=== PATIENT | female | born 1980 | race Caucasian/White ===

== ENCOUNTER 2019-12-18 08:08 | Emergency (ER) | payer MEDICARE, MEDICAID, SELFPAY ==
--- NOTE | 2019-12-18 08:13 | ED.GENADULT ---
HPI - General Adult General Stated complaint: Rash Time Seen by Provider: 12/18/19 08:31 Source: patient and RN notes reviewed Mode of arrival: ambulatory Limitations: no limitations History of Present Illness HPI narrative: This patient started having a red itchy raised rash on the bilateral lower back 2 days ago on 12/16/2019. This is known anterior thighs and on the anterior abdomen. She does not have any on the hands or on the arms. She has no in the neck or on the facial area. She has none below the knees. And on the feet. She has not changed anything that she puts on the skin for cleansing or bathing purposes. She has not been traveling. She not had any insect bites or insects appear. There is been no blisters appear. There have been no pustules. She is otherwise felt well without any ear pain, no nasal drainage, no sore throat, no fever, no cough. She has had no nausea, no vomiting, no diarrhea. She has had no hematuria, no dysuria, no pyuria. No family members have any rashes. Related Data Home Medications Medication Instructions Recorded Confirmed bupropion HCl PO 12/18/19 buspirone mg 12/18/19 etonogestrel-ethinyl estradiol vag ring VAGINAL 12/18/19 mirabegron [Myrbetriq] mg PO 12/18/19 pantoprazole PO 12/18/19 trazodone 12/18/19 Allergies Allergy/AdvReac Type Severity Reaction Status Date / Time SEASONAL ALLERGENS AdvReac Unknown RUNNY NOSE Uncoded 12/18/19 08:37 Review of Systems Review of Systems: Narrative: CONSTITUTIONAL: Denies fever, chills, or sweats. Noncontributory except as pertains to the past medical history and the history of present illness. EYES: Denies visual changes, redness, or discharge. ENT: Denies rhinorrhea, congestion, sore throat, or otalgia. CARDIOVASCULAR: Denies chest pain, palpitations, or edema. RESPIRATORY: Denies cough or dyspnea. GASTROINTESTINAL: Denies abdominal pain, nausea, vomiting, or diarrhea. GENITOURINARY: Denies dysuria or hematuria. SKIN: Denies rash or itching. MUSCULOSKELETAL: Denies back pain, joint pain, or myalgia. NEUROLOGIC: Denies headache, numbness, or weakness. PSYCHIATRIC: Denies anxiety or depression. [facility] Family History Family History (Updated 07/13/19 @ 08:34 by DOCTOR UNKNOWN) Other Family history of arthritis Family history of malignant neoplasm Family history of neuropathy Hypertension Social History Social History Smoking status: Former smoker Smoking end date: 11/09/09 Alcohol intake: current Comments At time of signature, I have reviewed and agree with nursing past medical, surgical, social, and family history.Please see nursing chart for further information. There is no relevant family history pertinent to the presenting complaint. Exam Narrative: Exam Narrative: GENERAL: Well-appearing, well-nourished, and in no acute distress. HEAD: Normocephalic, atraumatic. EYES: PERRLA and EOMI. EARS: TM's clear biilaterally and the canals are clear. NOSE: Nares clear, no rhinorrhea or epistaxis. THROAT:Mucous membranes moist.Oropharynx normal without erythema or exudates. NECK: Supple. No adenopathy of the neck, supraclavicular, axillary, or inguinal areas. RESPIRATORY: No respiratory distress. Airway patent. Respirations non-labored. Clear to auscultation. HEART: Regular rate and rhythm. No murmur heard. Normal peripheral pulses. ABDOMEN: Soft, nontender, nondistended, normal active bowel sounds.No masses. No rebound or guarding, No organomegaly. No CVA pain. No pain McBurney's point. Patient is a negative Wills sign negative Rovsing sign. No pulsatile masses or audible bruits. EXTREMITIES: No clubbing/cyanosis/ edema. Normal strength & range of motion. SKIN: Warm, dry.Normal color. Patient is well-nourished well-hydrated has moist mucous membranes and no tenting of the skin. The skin exam shows that she has a red raised rash without any herpetic lesions present there also no abscesses and no evidenc
[2019-12-18 08:24] VITALS: BP 95/51; PULSE 81; RESP 16; TEMP 36.4; O2SAT 100
== END 2019-12-18 08:43 | disposition home or self-care (01) ==
LOC: EXPCOLL 08:16
PROVIDERS: Emergency Provider Family Medicine; PCP Emergency Medicine
DX: L23.9 Allergic contact dermatitis, unspecified cause (principal); Z87.891 Personal history of nicotine dependence
CPT/HCPCS: 99213; G0463

== ENCOUNTER 2020-01-11 08:48 | Emergency (ER) | payer MEDICARE, MEDICAID, SELFPAY ==
[2020-01-11 09:01] VITALS: BP 97/51; PULSE 76; RESP 16; TEMP 36.9; O2SAT 99
--- NOTE | 2020-01-11 09:40 | ED.GENADULT ---
HPI - General Adult General Chief complaint: Upper Respiratory Infection Stated complaint: Sore Throat History of Present Illness HPI narrative: 97 this is a 39-year-old female who comes in complaining of a sore throat that started yesterday patient denies taking any allergy medicine or gargling any warm salt water. Patient denies any fever but states she had a low-grade. Patient states that she started to have like aches that started this morning denies any nausea vomiting and/or diarrhea Related Data Home Medications Medication Instructions Recorded Confirmed bupropion HCl 150 mg PO BID 01/11/20 01/11/20 buspirone 10 mg PO BID 01/11/20 01/11/20 etonogestrel-ethinyl estradiol 1 vag ring VAGINAL ONCE 01/11/20 01/11/20 [NuvaRing] gabapentin 01/11/20 methotrexate sodium 2.5 mg PO DAILY 01/11/20 01/11/20 pantoprazole [Protonix] 40 mg PO DAILY 01/11/20 01/11/20 prednisone 20 mg PO DAILY 01/11/20 01/11/20 tramadol 50 mg PO QID 01/11/20 01/11/20 trazodone 100 mg PO BID 01/11/20 01/11/20 Allergies Allergy/AdvReac Type Severity Reaction Status Date / Time SEASONAL ALLERGENS AdvReac Unknown RUNNY NOSE Uncoded 12/18/19 08:37 Review of Systems Review of Systems: Narrative: CONSTITUTIONAL: Denies fever, chills, or sweats. EYES: Denies visual changes, redness, or discharge. ENT: Positive rhinorrhea, congestion, sore throat, or otalgia. CARDIOVASCULAR:Denies chest pain, palpitations, or edema. RESPIRATORY: Denies cough or dyspnea. GASTROINTESTINAL: Denies abdominal pain, nausea, vomiting, or diarrhea. GENITOURINARY: Denies dysuria or hematuria. SKIN:[Denies rash or itching. MUSCULOSKELETAL:Denies back pain, joint pain, or myalgia. NEUROLOGIC: Denies headache, numbness, or weakness. PSYCHIATRIC:Denies anxiety or depression [facility] Family History Family History (Updated 07/13/19 @ 08:34 by DOCTOR UNKNOWN) Other Family history of arthritis Family history of malignant neoplasm Family history of neuropathy Hypertension Social History Social History Smoking status: Former smoker Smoking end date: 11/09/09 Alcohol intake: current Gender identity (if verbalized by the patient): Female Comments At time as signature, I have reviewed and agree with nursing past medical, social, surgical and family history. Please see nursing chart for further information. There is no relevant family history pertinent to the presenting complaint. Exam Narrative: Exam Narrative: GENERAL:Well-appearing, well-nourished, and in no acute distress. HEAD:Normocephalic, atraumatic. EYES: PERRLA and EOMI. ENT: Nares clear, no rhinorrhea or epistaxis. Mucous membranes moist. Pharyngeal erythema left-sided tonsil slightly enlarged not sure if erythema is due to cough drops NECK: Supple. CHEST: Clear to auscultation. No respiratory distress. HEART: Regular rate and rhythm. No murmur heard. Normal peripheral pulses. ABDOMEN: Soft, nontender, nondistended, normal active bowel sounds. EXTREMITIES: Normal range of motion. No edema. SKIN: Warm, dry, no rash. NEURO: No focal deficits. Alert and oriented x3. We can culture her neck and give antibiotics Course Vital Signs Vital signs: Vital Signs Temperature 98.4 F 01/11/20 09:01 Pulse Rate 76 01/11/20 09:01 Respiratory Rate 16 01/11/20 09:01 Blood Pressure 97/51 L 01/11/20 09:01 Pulse Oximetry 99 01/11/20 09:01 Temperature 98.4 F 01/11/20 09:01 Pulse Rate 76 01/11/20 09:01 Respiratory Rate 16 01/11/20 09:01 Blood Pressure 97/51 L 01/11/20 09:01 Pulse Oximetry 99 01/11/20 09:01 Medical Decision Making Vital Signs Vital Signs: Vital Signs Temperature 98.4 F 01/11/20 09:01 Pulse Rate 76 01/11/20 09:01 Respiratory Rate 16 01/11/20 09:01 Blood Pressure 97/51 L 01/11/20 09:01 Pulse Oximetry 99 01/11/20 09:01 Temperature 98.4 F 01/11/20 09:01 Pulse Rate 76 01/11/20 09:01 Respiratory Rate 16 01/11/20 09:01 Blood Pr
--- NOTE | 2020-01-11 09:50 | PC.NURSE ---
Pt request flu testing.
== END 2020-01-11 10:20 | disposition home or self-care (01) ==
PROVIDERS: Emergency Provider Nurse Practitioner Family; PCP Emergency Medicine
DX: J02.9 Acute pharyngitis, unspecified (principal); Z87.891 Personal history of nicotine dependence
CPT/HCPCS: 87081; 87804; 87880; 99213; G0463

== ENCOUNTER 2020-01-24 04:48 | Emergency (ER) | payer MEDICARE, MEDICAID, SELFPAY ==
[2020-01-24 05:02] VITALS: BP 105/55; PULSE 92; RESP 16; TEMP 37.1; O2SAT 99
[2020-01-24 06:11] VITALS: BP 118/82; PULSE 80; RESP 18; O2SAT 95
[2020-01-24] MEDS: PENICILLIN V POTASSIUM 250 MG TABLET 500 MG PO (06:30)
[2020-01-24] MEDS: AZITHROMYCIN 250 MG TABLET 500 MG PO (06:31)
--- NOTE | 2020-01-24 06:49 | ED.GENADULT ---
HPI - General Adult General Chief complaint: Upper Respiratory Infection Stated complaint: swollen tonsil Time Seen by Provider: 01/24/20 06:04 History of Present Illness HPI narrative: sore throat and swollen tonsils for the past 2 weeks. She tested negative for strep at the onset of her symptoms. Her symptoms have not improved since that time. Additionally she has had pain in the right ear and mild temperature elevation. Unsure about sick contacts. Related Data Home Medications Medication Instructions Recorded Confirmed bupropion HCl 150 mg PO BID 01/11/20 01/11/20 buspirone 10 mg PO BID 01/11/20 01/11/20 etonogestrel-ethinyl estradiol 1 vag ring VAGINAL ONCE 01/11/20 01/11/20 [NuvaRing] gabapentin 01/11/20 methotrexate sodium 2.5 mg PO DAILY 01/11/20 01/11/20 pantoprazole [Protonix] 40 mg PO DAILY 01/11/20 01/11/20 prednisone 20 mg PO DAILY 01/11/20 01/11/20 tramadol 50 mg PO QID 01/11/20 01/11/20 trazodone 100 mg PO BID 01/11/20 01/11/20 Allergies Allergy/AdvReac Type Severity Reaction Status Date / Time SEASONAL ALLERGENS AdvReac Unknown RUNNY NOSE Uncoded 12/18/19 08:37 Review of Systems Review of Systems: All systems reviewed & are unremarkable except as noted in HPI and below Constitutional: Constitutional: Denies fever(s) ENT: Reports sore throat Cardiovascular: Cardiovascular: Denies chest pain Gastrointestinal: Gastrointestinal: Denies abdominal pain and Denies nausea Musculoskeletal: Musculoskeletal: Denies myalgias Neurologic: Denies weakness Endocrine: Endocrine: Denies polydipsia Allergic/Immunologic: Allergic/Immunologic: Denies lip swelling and Denies tongue swelling REPLACED BY [facility] Past Medical History Medical History (Updated 01/24/20 @ 06:56 by Manoj Carter MD) Depression Family History Family History Other Family history of arthritis Family history of malignant neoplasm Family history of neuropathy Hypertension Social History Social History Smoking status: Former smoker Smoking end date: 11/09/09 Alcohol intake: current Gender identity (if verbalized by the patient): Female Exam Const: General: no acute distress and alert Orientation/consciousness: patient oriented x3 HENMT: Ears: TM's normal bilaterally Teeth and gingiva: dentition normal Throat: uvula midline Other: pharyngeal erythema. tonsilar exudates Eyes: Pupils: Equal, round and reactive pupils present Neck: Neck: lymphadenopathy right anterior cervical Resp: Effort & Inspection: normal respiratory effort Auscultation: clear to auscultation bilaterally Cardio: Rate: regular rate Rhythm: regular rhythm Skin: General skin exam: normal color Rashes: no rashes Neuro: General: patient oriented x3, moves all extremities and no focal motor deficits Speech: normal speech Extrem: General: normal to inspection Course Vital Signs Vital signs: Vital Signs Temperature 37.1 C 01/24/20 05:02 Pulse Rate 92 01/24/20 05:02 Respiratory Rate 16 01/24/20 05:02 Blood Pressure 105/55 L 01/24/20 05:02 Pulse Oximetry 99 01/24/20 05:02 Temperature 37.1 C 01/24/20 05:02 Pulse Rate 80 01/24/20 06:11 Respiratory Rate 18 01/24/20 06:11 Blood Pressure 118/82 01/24/20 06:11 Pulse Oximetry 95 01/24/20 06:11 Medical Decision Making MDM Narrative Medical decision making narrative: Positive for strep. No [employer] on exam. Will start azithromycin and give single dose dexamethasone. Medical Records Medical records reviewed: Yes I reviewed the patient's medical records. Vital Signs Vital Signs: Vital Signs Temperature 37.1 C 01/24/20 05:02 Pulse Rate 92 01/24/20 05:02 Respiratory Rate 16 01/24/20 05:02 Blood Pressure 105/55 L 01/24/20 05:02 Pulse Oximetry 99 01/24/20 05:02 Temperature 37.1 C 01/24/20 05:02 Pulse Rate 80
[2020-01-24 06:51] VITALS: BP 122/74; PULSE 82; RESP 16; O2SAT 99
== END 2020-01-24 06:53 | disposition home or self-care (01) ==
PROVIDERS: Emergency Provider Emergency Medicine; PCP Emergency Medicine
DX: J02.0 Streptococcal pharyngitis (principal); F32.9 Major depressive disorder, single episode, unspecified; Z87.891 Personal history of nicotine dependence
CPT/HCPCS: 87880; 96372; 99283; A9270; J1100

== ENCOUNTER 2021-10-09 09:02 | Outpatient (CLI) | payer MEDICARE, MEDICAID, SELFPAY | END 2021-10-09 09:03 | disposition home or self-care (01) | PROVIDERS: PCP Emergency Medicine; Visit Provider Obstetrics & Gynecology | DX: Z01.812 Encounter for preprocedural laboratory examination (principal); N87.9 Dysplasia of cervix uteri, unspecified | CPT/HCPCS: 36415; 86850; 86900; 86901 ==

== ENCOUNTER → 2021-10-12 00:54 | Outpatient (CLI) | payer MEDICARE, MEDICAID, SELFPAY ==
[2021-10-12 18:55] LABS: SARS-CoV-2 RNA PCR Negative
== END ==
PROVIDERS: PCP Emergency Medicine; Visit Provider Obstetrics & Gynecology
DX: Z01.812 Encounter for preprocedural laboratory examination (principal); Z20.822 Contact with and (suspected) exposure to COVID-19
CPT/HCPCS: C9803; U0003; U0005

== ENCOUNTER 2021-10-15 02:19 | Day surgery (SDC) | payer MEDICARE, MEDICAID, SELFPAY ==
[2021-10-02 13:53] VITALS: BMI 24.9
--- NOTE | 2021-10-02 13:54 | SUR.PREOP ---
Report to the Outpatient Waiting Room, entrance under the green pavilion located off [facility], at time _0900_ on date 10/15/21. OR Time: 1100_ - You and your visitor will be asked a series of questions to screen for COVID 19 for your protection. - A mask is required within the hospital. - Only one visitor is allowed at this time. Patient visitors will be guided where to wait when not with patient. Preoperative COVID Testing Requirements: No COVID Test needed if: (proof is required; if not received patient will have Rapid Test prior to entry) - Patient has received COVID Vaccine at least 14 days prior to procedure date or - Patient has positive COVID test result within last 90 days of surgery date. COVID Test needed if above criteria is not met If not COVID vaccinated a COVID test must be conducted within 72 hours of surgery and patient is asked to isolate self from time of testing until procedure. You will go to the [facility] for your COVID testing. The [facility] is located at the corner of [address] [facility]. You will only be called if COVID results are positive and your surgeon may reschedule your elective surgery date. Patients may have clear liquids (water, carbonated beverages, clear teas, apple juice) until 3 hours prior to surgery with a maximum of 20 ounces. - No food from midnight until time of surgery - Infants may have breast milk until 4 hours before surgery, infant formula 6 hours prior to surgery. - Children will be allowed to drink immediately following surgery. If applicable, please bring a bottle or sippy cup to assist with drinking. Juice, water, soda, and popsicles are readily available. For infants on formula, please bring formula the day of surgery. Pacifiers are allowed. Take the following medications with a SIP of water the morning of surgery: __lexapro,bupropion,buspirone__ Medications to discontinue per physician _ Date to take last dose_ Please no make-up, nail azeri, hairspray, perfume, deodorant, or body powder the day of surgery. No jewelry (including any body piercings) or valuables the day of surgery, leave them at home. Please take a shower or bath the night before, or the morning of, surgery with an antibacterial soap. Wear comfortable, loose fitting clothing. Children are encouraged to wear pajamas. - Jewelry must be removed prior to entering the operating room. Rings and piercings that are not removed may be cut off. - The hospital will not accept responsibility for valuables. - Please leave all valuables, including medications, at home the day of surgery. If you are going home after surgery, a licensed local intermodal truck driver must drive you home. - NO public transportation without another adult. - We recommend that an adult stay with you for 24 hours following discharge. - We also recommend that you do not drive, make important decision, drink alcoholic beverages, or take any drugs that were not prescribed by your health care provider for at least 24 hours after your discharge time. For Pediatric surgeries, we recommend two adults accompany the child home (only one inside the building at this time). Follow any additional instructions given to you from your surgeon. Telephone instructions given to _kaylynn gallego and asked if any additional questions and then verbalized understanding. Patient advised to call surgeon office or pre surgery nurse liaison [phone] if any additional questions.
--- NOTE | 2021-10-14 14:42 | WPDANESEPPF ---
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 Patient Data Age: 41 Gender: F Height: 1.63 m Weight: 65.9 kg Allergies Allergy/AdvReac Type Severity Reaction Status Date / Time SEASONAL ALLERGENS AdvReac Mild RUNNY NOSE Uncoded 10/02/21 13:25 Home Medications Medication Instructions Recorded Confirmed Type bupropion HCl 150 mg PO BID 01/11/20 10/15/21 History buspirone 10 mg PO BID 01/11/20 10/15/21 History etonogestrel-ethinyl estradiol 1 vag ring VAGINAL ONCE 01/11/20 10/15/21 History [NuvaRing] gabapentin 800 mg PO HS 01/11/20 10/15/21 History pantoprazole [Protonix] 40 mg PO DAILY 01/11/20 10/02/21 History tramadol 50 mg PO PRN 01/11/20 10/15/21 History trazodone 100 mg PO HS 01/11/20 10/15/21 History azithromycin See Rx Instructions .ROUTE 01/24/20 10/02/21 Rx .COMPLEX #6 tablet escitalopram oxalate 10 mg PO DAILY 10/02/21 10/15/21 History fluticasone propionate [Flonase 1 spray NASAL PRN 10/02/21 10/15/21 History Allergy Relief] loratadine [Claritin] 10 mg PO PRN 10/02/21 10/15/21 History atomoxetine 10 mg PO BID 10/15/21 10/15/21 History Patient hx anesthesia problems: none Family hx anesthesia problems: none Results Review: All pre-operative results and documents have been reviewed as part of the pre-operative evaluation. [facility] Past Medical History Medical History (Updated 10/14/21 @ 14:42 by Adrian Abreu MD) Anxiety Depression GERD (gastroesophageal reflux disease) Family History Family History Other Family history of arthritis Family history of malignant neoplasm Family history of neuropathy Hypertension Social History Social History Smoking status: Former smoker Smoking end date: 11/09/10 Additional smoking assessment comments: 1 ppd x 15 years cigarettes Alcohol intake: current Substance use: current Substance use type: marijuana Other substance usage details: eatable or topical Living arrangements: alone Gender identity (if verbalized by the patient): Female Spiritual care concerns: No Anes - Eval Final PreProcedure Day of Procedure 10/14/21 14:42 Patient weight: normal Heart: regular rate and rhythm Lungs: clear to auscultation Airway: Mallampati scale class II Neurological: alert and oriented Last oral intake: >/= 8 hours ASA classification: II Emergent: no Anesthetic plan: proceed Anesthesia type and monitoring: general ETT and standard monitoring Results Review: All pre-operative results and documents have been reviewed as part of the pre-operative evaluation. Informed Consent: The patient's anesthetic plan and its attendant risks and benefits were discussed with the patient/family/POA. Questions were solicited and answers provided to the satisfaction of the patient/family/POA.
[2021-10-15] VITALS (8 sets, daily range): BP systolic 94–113; BP diastolic 51–61; PULSE 76–93; RESP 8–16; TEMP 36.3–37.1; O2SAT 95–100
--- NOTE | 2021-10-15 09:30 | WPDHPUPDATE1 ---
History and Physical Update Update Date/Time: 10/15/21 09:30 History and Physical has been reviewed, including an updated exam of the patient. There are NO changes in the patient's condition. Risks, benefits, and alternatives have been discussed and questions answered. Patient agrees to proceed with procedure.
[2021-10-15] MEDS: ACETAMINOPHEN 500 MG TABLET 1000 MG PO (09:48)
[2021-10-15] MEDS: SCOPOLAMINE 1.5 MG PATCH TRANSDERM (10:00)
[2021-10-15] MEDS: LACTATED RINGERS 1,000 ML 30 ML IV CONT ×2 (10:07→12:03)
[2021-10-15] MEDS: KETOROLAC 15 MG/ML VIAL (*BKC) IV PUSH (10:07)
[2021-10-15] MEDS: ceFAZolin 2 GM/D5W 50 ML 2 GM/50 ML BAG IVPB (10:19)
--- NOTE | 2021-10-15 10:52 | PC.NURSE ---
This patient, Nataliia Mckeon, was received from PACU on 10/15/21 at 1052. Patient/family oriented to unit policies and routines
--- NOTE | 2021-10-15 11:49 | W.PM.PROC2 ---
Procedure Note - Detailed Date of Procedure 10/15/21 Pre-op Diagnosis CIN3 with severe dysplasia Post-op Diagnosis same Procedure Performed Total laparoscopic hysterectomy and bilateral salpingectomy. Surgeon Nikki De Anda MD Anesthesia general Indications recurrent severe cervical dysplasia Findings Moderate sized uterus, normal appearing ovaries and normal-appearing tubes. Description of Procedure This patient was taken to the operating room. She was prepped and draped in the dorsal lithotomy position after induction of general anesthesia. The uterine manipulator and Guillermo cup were placed. This was done with a speculum and tenaculum. The speculum was placed. The cervix was grasped with a tenaculum. The stay sutures were placed at 3 and 9:00 a.m.. The stay sutures of 0 Vicryl were brought through the appropriately sized Guillermo cup. The tip of the ALYSE manipulator was placed in the intrauterine cavity. The cup was slid into place around the cervix and into the fornices. It was locked into place. The sutures were then wrapped around the handle and tied under tension. A 5 mm skin incision was made in the left upper quadrant the abdomen. A 5 mm trocar was inserted into the intrauterine cavity under direct visualization of the scope. Pneumoperitoneum was achieved. A left lower quadrant 11 mm incision was made with scalpel. An 11 mm trocar was inserted into the anterior abdominal cavity under direct visualization the scope. A 5 mm infraumbilical incision was made with a scalpel and a 5 mm trocar was inserted the intra-abdominal cavity under direct visualization of the scope. Bilateral ureteral lysis was performed. This was done from the pelvic brim down to the uterine artery. This was done with careful dissection using sharp and blunt dissection. The fallopian tubes were removed bilaterally. The mesosalpinx around the fallopian tubes were cauterized transected with LigaSure cautery. This was done in a bilateral fashion from the ovary to the uterine cornua. The fallopian tube was transected at the uterine cornu and amputated. The tube was taken out the left lower quadrant trocar site. In a stepwise fashion along the lateral aspects of the uterus the round ligament and broad ligaments were cauterized transected down to the level of the uterine arteries. A bladder flap was created in the bladder was moved distally to the end of the cervix and over the Guillermo cup. The bilateral uterine arteries were cauterized and transected. Colpotomy was then performed. In a circumferential fashion the vagina was transected using unipolar cautery. The incision was made down on the Guillermo cup. The uterus and cervix were taken out through the vagina. A pneumo occluder was placed in the vagina. The vaginal cuff was closed with a 0 V lock suture in a running fashion. The pelvis was irrigated with copious amounts antibiotic irrigation. The ureters were again examined and found to be intact and flowing freely under the uterine arteries into the bladder. The bladder was intact. It was examined directly. The vagina was irrigated with Betadine solution after removal of the Pneumo occluder. The patient was taken to recovery room. She was stable condition. Sponge lap and needle counts were correct x2. Drains Yes Packing No Pathology yes Complications No immediate complications Condition stable Disposition floor
[2021-10-15] MEDS: fentaNYL CITRATE INJ (*CRX) 100 MCG/2 ML VIAL 25 MCG IV PUSH ×6 (12:13→12:49)
[2021-10-15] MEDS: DEXTROSE 5%/0.45% SOD CHL 1,000 ML 125 ML IV CONT (13:33)
[2021-10-15] MEDS: KETOROLAC 30 MG/ML VIAL (*BKC) IV PUSH (13:35)
[2021-10-15] MEDS: HYDROcodone/acetaminophen (*CRX) 5-325 MG TABLET 1 TAB PO ×2 (16:05→17:10)
[2021-10-15] MEDS: busPIRone HCL 10 MG TABLET PO (16:05)
[2021-10-15] MEDS: IBUPROFEN 600 MG TABLET PO (20:14)
[2021-10-15] MEDS: HYDROcodone/acetaminophen (*CRX) 10-325 MG TABLET 1 TAB PO (20:16)
[2021-10-15] MEDS: buPROPion HCL SR (12 HR) 150 MG TAB PO (20:16)
[2021-10-15] MEDS: traZODone HCL 50 MG TABLET 100 MG PO (20:20)
[2021-10-15] MEDS: GABAPENTIN 400 MG CAPSULE 800 MG PO (20:20)
[2021-10-16] MEDS: HYDROcodone/acetaminophen (*CRX) 10-325 MG TABLET 1 TAB PO ×4 (00:01→09:30)
[2021-10-16 01:41] VITALS: BP 98/54; PULSE 86; RESP 18; TEMP 37.1; O2SAT 97
[2021-10-16] MEDS: KETOROLAC 30 MG/ML VIAL (*BKC) IV PUSH (02:13)
[2021-10-16 05:00] VITALS: BP 89/47; PULSE 78; RESP 16; TEMP 36.3; O2SAT 96
[2021-10-16 06:36] VITALS: BP 114/45; PULSE 68; RESP 18; TEMP 36.8; O2SAT 95
--- NOTE | 2021-10-16 07:48 | PM.GYNPNOP ---
[facility] CONSULTANT - A/P Postoperative Procedures: Procedures Operation Date: 10/15/21 11:00 Actual Procedure Side Surgeon p Total Laparoscopic Hysterectomy with Bilateral Salpingectomy Bilateral Nikki De Anda MD Postoperative day: 1 Postoperative status: doing well Postoperative plan: see orders Time Spent With Patient Time: Total time spent is greater than 50% in coordination of care (as documented) at patient's floor/unit and/or counseling patient: Time with patient: less than 15 minutes [facility] CONSULTANT- PN:Subj Post-Op Subjective Date/time seen: 10/16/21 07:48 Subjective: patient reports feeling better, patient has no complaints and pain is well controlled Exam Const: General: healthy appearing, comfortable and no acute distress Resp: Auscultation: clear to auscultation bilaterally, no rales, no rhonchi and no wheezes Cardio: Rate: regular rate Heart sounds: no click, no murmurs and no rubs GI: Inspection: non-distended Auscultation: normal bowel sounds Extrem: General: normal to inspection, no pedal edema and no calf tenderness [facility] CONSULTANT - PN: Obj Data Vital Signs Vital Signs: Vital Signs - 24 hr 10/15/21 10:00 10/15/21 12:03 10/15/21 12:15 Temperature 98.3 F 98.1 F Pulse Rate 76 82 80 Respiratory Rate 16 10 L 8 L Blood Pressure 107/59 L 105/61 113/53 L Pulse Oximetry 98 100 100 10/15/21 12:30 10/15/21 12:45 10/15/21 13:20 Temperature 97.3 F L Pulse Rate 78 80 81 Respiratory Rate 12 14 16 Blood Pressure 113/54 L 107/58 L 94/53 L Pulse Oximetry 99 97 95 10/15/21 16:00 10/15/21 19:30 10/16/21 01:41 Temperature 97.6 F 98.8 F 98.8 F Pulse Rate 78 93 86 Respiratory Rate 16 16 18 Blood Pressure 106/52 L 103/51 L 98/54 L Pulse Oximetry 98 98 97 10/16/21 05:00 10/16/21 06:36 Temperature 97.4 F L 98.2 F Pulse Rate 78 68 Respiratory Rate 16 18 Blood Pressure 89/47 L 114/45 L Pulse Oximetry 96 95 Intake/Output Intake/Output: Intake & Output 10/13/21 10/14/21 10/15/2108/21 23:59 23:59 23:59 23:59 Intake Total 1850 750 Output Total 910 6550 Balance 940 -700 Meds/Results Medications: Active Medications Generic Name Dose Route Start Last Admin Trade Name Freq PRN Reason Stop Dose Admin Hydrocodone Bitart/Acetaminophen 1 tab 10/15/21 12:57 10/15/21 17:10 Hydrocodone/Acetaminophen (*Crx) 5-325 Mg Tablet PO 1 tab Q3H PRN Administration Pain Rated 5 or Less Hydrocodone Bitart/Acetaminophen 1 tab 10/15/21 12:57 10/16/21 06:25 Hydrocodone/Acetaminophen (*Crx) 10-325 Mg Tablet PO 1 tab Q3H PRN Administration Pain Rated 6 or Greater Bupropion HCl 150 mg 10/15/21 21:00 10/15/21 20:16 Bupropion Hcl Sr (12 Hr) 150 Mg Tab PO 150 mg Q12HR RYANN Administration Buspirone HCl 10 mg 10/15/21 17:00 10/15/21 16:05 Buspirone Hcl 10 Mg Tablet PO 10 mg BID RYANN Administration Escitalopram Oxalate 10 mg 10/16/21 09:00 Escitalopram Oxalate 10 Mg Tablet PO DAILY RYANN Gabapentin 800 mg 10/15/21 21:00 10/15/21 20:20 Gabapentin 400 Mg Capsule PO 11/14/21 20:59 800 mg HS RYANN Administration Dextrose/Sodium Chloride 1,000 mls @ 125 mls/hr 10/15/21 12:57 10/16/21 04:59 Dextrose 5% Sodium Chloride 0.45% IV CONT Not Given .Q8H RYANN Ibuprofen 600 mg 10/15/21 12:57 10/15/21 20:14 Ibuprofen 600 Mg Tablet PO 600 mg Q6H PRN Administration Cramping Ketorolac Tromethamine 30 mg 10/15/21 12:57 10/16/21 02:13 Ketorolac 30 Mg/Ml Vial (*Bkc) IV PUSH 10/20/21 12:56 30 mg Q6H PRN Administration Pain Rated 4-6 Naloxone HCl 0.1 mg 10/15/21 12:57 Naloxone Hcl 0.4 Mg/Ml Vial IV PUSH Q2M PRN Respiratory rate less than 10 Ondansetron HCl 4 mg 10/15/21 12:57 Ondansetron Inj 4 Mg/2 Ml Vial IV PUSH Q6H PRN Nausea And Vomiting Trazodone HCl 100 mg 10/15/21 21:00 10/15/21 20:20 Trazodone Hcl 50 Mg Tablet PO 100 mg HS RYANN Administration
[2021-10-16] MEDS: IBUPROFEN 600 MG TABLET PO (09:26)
--- NOTE | 2021-10-16 09:27 | WPDANESPN ---
Anes - Prog Note Post-Op Date/Time: 10/16/21 09:27 Cardiovascular status: normal Respiratory status: normal Airway patency: baseline Mental status: baseline Post-Op hydration status: normal Vital Signs: Last Vital Signs Temp 36.8 C 10/16/21 06:36 Pulse 68 10/16/21 06:36 Resp 18 10/16/21 06:36 BP 114/45 L 10/16/21 06:36 Pulse Ox 95 10/16/21 06:36 Pain Score (VAS): 3 I/O: Intake & Output 10/15/21 10/16/21 10/16/21 23:59 07:59 15:59 Intake Total 1500 750 Output Total 850 1450 Balance 650 -700 Post-procedural complaints: none Patient Feedback: Patient satisfied with anesthetic care.
== END 2021-10-16 10:53 | disposition home or self-care (01) ==
LOC: ANHSURGERY 11:00 → ANHOB2 13:05
PROVIDERS: PCP Emergency Medicine; Visit Provider Obstetrics & Gynecology
PROC: 0UT9FZZ Resection of Uterus, Via Natural or Artificial Opening With Percutaneous Endoscopic Assistance (ICD-10-PCS; CPT 58571; principal; 2021-10-15 11:00)
DX: D06.9 Carcinoma in situ of cervix, unspecified (principal); N80.0 Endometriosis of uterus; N73.6 Female pelvic peritoneal adhesions (postinfective); Z23 Encounter for immunization; K21.9 Gastro-esophageal reflux disease without esophagitis; F41.8 Other specified anxiety disorders; Z87.891 Personal history of nicotine dependence; F12.90 Cannabis use, unspecified, uncomplicated
CPT/HCPCS: 58571; 36415; 86850; 86900; 86901; 88307; 90471; 90653; 99199; A9270; C9803; G0008; J0690; J1100; J1170; J1885; J2250; J2405; J2704; J3010; J7120; U0003; U0005

== ENCOUNTER 2021-12-18 21:48 | Observation (INO) | payer MEDICARE, MEDICAID, SELFPAY ==
--- NOTE | ~2021-12-18 | XR_ITS ---
EXAMINATION: XR enema water soluble DATE: 12/19/2021 09:34 INDICATION: Abdominal pain and constipation TECHNIQUE: A drum sander offbearer radiograph was obtained. A catheter was inserted into the patient's rectum. Water- soluble contrast was infused by gravity. 20 fluoroscopic images were obtained. Additional 2 postevacu ation overhead radiographs were obtained.. Fluoroscopy exposure time was 0.9 minutes. COMPARISON: CT dated 12/18/2021 FINDINGS: [employer] Grade Teacher radiograph demonstrates a large amount of stool scattered throughout the colon with no dilated gas-filled loops of bowel to suggest obstruction. Cholecystectomy clips in right upper quadrant. Post operative change of prior instrumented anterior and posterior spinal fusion between L4 and a side sac ralized L5 segment. Small amount of excreted contrast the bladder from the prior contrast enhanced CT of the abdomen and pelvis. Retrograde contrast administration extending throughout the colon to the cecum demonstrates numerous intraluminal filling defects consistent with large amount of retained sto ol consistent with given history of constipation. No abnormal masses or strictures identified. Evalua tion for smaller polyps is nondiagnostic due to the large amount of retained stool. IMPRESSION: 1. Large amount of stool throughout the colon consistent with constipation. Reviewed, dictated and finalized at location A. OMS MANAGER
--- NOTE | ~2021-12-18 | CT_ITS ---
EXAMINATION: CT abdomen pelvis w con DATE: 12/18/2021 23:28 INDICATION: Constipation. Nausea. TECHNIQUE: Computed tomography (CT) of the abdomen and pelvis was performed with 100 mL Omnipaque 350 intravenous contrast. Automated exposure control and iterative reconstruction technique were employe d. The dose-length product was 342.26 mGy-cm. COMPARISON: CT abdomen and pelvis 05/31/2016 FINDINGS: The visualized portions of the lung bases are clear without pneumonia or pleural effusion. The heart size is normal. No pericardial effusion. The liver is normal. There are changes of cholecys tectomy. The spleen, pancreas, adrenal glands, and kidneys are normal. There is a large volume of sto ol in the colon. The appendix is not visualized. The small bowel is normal in caliber. There is free intraperitoneal gas in the upper abdomen. There are surgical changes of the stomach. There is trace p elvic ascites. There are no pathologically enlarged lymph nodes. There are changes of anterior and po sterior fusion procedures at L4-L5. IMPRESSION: 1. Free intraperitoneal gas in the upper abdomen, which may be from surgery on 10/15/2021, but this wo uld be an unusually long time for the gas to persist. Perforated viscus cannot be excluded. 2. Large volume of stool in the colon. Reviewed, dictated and finalized at location A. OCHEMIST IMPRESSION: 1. Free intraperitoneal gas in the upper abdomen, which may be from surgery on 10/15/2021, but this would be an unusually long time for the gas to persist. Per forated viscus cannot be excluded. 2. Large volume of stool in the colon.
[2021-12-18 21:50] VITALS: BP 103/69; PULSE 94; RESP 16; TEMP 36.2; O2SAT 100
--- NOTE | 2021-12-18 22:46 | ED.ABDPAIN ---
HPI - Abdominal Pain General Chief Complaint: Abdominal Pain Stated Complaint: constipation Time Seen by Provider: 12/18/21 22:16 Source: patient History of Present Illness HPI narrative: Patient presents with abdominal pain. She has had abdominal pain for approximately 1 week it is suprapubic area and a little bit in her right lower quadrant. She also felt like she did not have a bowel movement but she is unable to do so for the past week she is now feeling nauseous and is afraid to eat. She is attempted stool softeners laxatives enemas and suppositories without success. She is concerned so she came to the ER for evaluation. Related Data Home Medications Medication Instructions Recorded Confirmed bupropion HCl 150 mg PO BID 01/11/20 10/15/21 buspirone 10 mg PO BID 01/11/20 10/15/21 gabapentin 800 mg PO HS 01/11/20 10/15/21 pantoprazole [Protonix] 40 mg PO DAILY 01/11/20 10/02/21 tramadol 50 mg PO PRN 01/11/20 10/15/21 trazodone 100 mg PO HS 01/11/20 10/15/21 escitalopram oxalate 10 mg PO DAILY 10/02/21 10/15/21 fluticasone propionate [Flonase 1 spray NASAL PRN 10/02/21 10/15/21 Allergy Relief] loratadine [Claritin] 10 mg PO PRN 10/02/21 10/15/21 atomoxetine 10 mg PO BID 10/15/21 10/15/21 Allergies Allergy/AdvReac Type Severity Reaction Status Date / Time SEASONAL ALLERGENS AdvReac Mild RUNNY NOSE Uncoded 12/18/21 22:45 Review of Systems Review of Systems: CONSTITUTIONAL: Denies fever, chills, or sweats. EYES: Denies visual changes, redness, or discharge. ENT: Denies rhinorrhea, congestion, sore throat, or otalgia. CARDIOVASCULAR: Denies chest pain, palpitations, or edema. RESPIRATORY: Denies cough or dyspnea. GASTROINTESTINAL: Abdominal pain, nausea, constipation GENITOURINARY: Denies dysuria or hematuria. SKIN: Denies rash or itching. MUSCULOSKELETAL: Denies back pain, joint pain, or myalgia. NEUROLOGIC: Denies headache, numbness, dizziness, or weakness. PSYCHIATRIC: Denies anxiety or depression. All systems reviewed & are unremarkable except as noted in HPI and below PMFSH Past Medical History Medical History Anxiety Depression GERD (gastroesophageal reflux disease) Family History Family History Other Family history of arthritis Family history of malignant neoplasm Family history of neuropathy Hypertension Social History Social History Smoking status: Former smoker Smoking end date: 11/09/10 Additional smoking assessment comments: 1 ppd x 15 years cigarettes Alcohol intake: current Substance use: current Substance use type: marijuana Other substance usage details: eatable or topical Gender identity (if verbalized by the patient): Female Spiritual care concerns: No Exam Narrative: GENERAL: Well-appearing, well-nourished, and in no acute distress. HEAD: Normocephalic, atraumatic. EYES: PERRLA and EOMI. ENT: Nares clear, no rhinorrhea or epistaxis. Mucous membranes moist. NECK: Supple. No masses. No JVD ABDOMEN: Moderate tenderness in the suprapubic area and right lower quadrant no rebound or guarding soft, nondistended, normal active bowel sounds. EXTREMITIES: Normal range of motion. No edema. SKIN: Warm, dry, no rash. NEURO: No focal deficits. Alert and oriented x3. PSYCH: Normal mood and affect. Course Reevaluation(s) Reevaluation #1: Patient resting comfortably results and plan reviewed with patient. Patient is comfortable with inpatient plan. Case discussed with Dr. Atkins surgery conservation enforcement officer given the free air in the abdomen there is concern for perforated viscus. Patient was started on antibiotics will be monitored as an inpatient hospitalist team declined admission Date: 12/19/21 Time: 01:39 Vital Signs Vital signs: Vital Signs Temperature 36.2 C L 12/18/21 21:50 Pulse Rate 94 12/18/21 21:50 Respi
[2021-12-18 23:07] LABS: Alanine Aminotransferase 34 U/L (4-35); Albumin Level 3.9 g/dL (3.5-5.1); Alkaline Phosphatase 61 U/L (38-126); Anion Gap 8 mmol/L (8-16); Aspartate Amino Transferase 26 U/L (14-36); Bilirubin,Total 0.2 mg/dL (0.2-1.3); Blood Urea Nitrogen 4 mg/dL (7-17); Calcium 8.4 mg/dL (8.4-10.2); Carbon Dioxide 28 mmol/L (22-30); Chloride 99 mmol/L (98-107); Estimated CRCL calculation 106 ml/min; Estimated Glomerular Filt Rate > 60; Glucose 96 mg/dL (65-110); Lipase 33 U/L (23-300); Potassium 3.5 mmol/L (3.4-5.0); Sodium 135 mmol/L (137-145)
[2021-12-18 23:09] LABS: Basophils Percent Auto 0.4 % (0.2-1.2); Eosinophils Absolute Auto 0.1 K/mm3 (0-0.3); Eosinophils Percent Auto 0.6 % (0-4.4); Hematocrit 36.9 % (37.0-47.0); Hemoglobin 12.1 g/dL (12.0-15.0); Immature Granulocyte Absolute 0.02 K/mm3 (0.00-0.031); Immature Granulocyte Percent A 0.3 % (0-0.5); Lymphocytes Absolute Auto 2.11 K/mm3 (0.9-3.2); Lymphocytes Percent Auto 27.1 % (18.3-44.2); Mean Corpuscular HGB Conc 32.8 g/dl (32-36); Mean Corpuscular Hemoglobin 30.9 pg (26-34); Mean Corpuscular Volume 94.4 fl (80-100); Mean Platelet Volume 10.3 fl (7.4-10.4); Monocytes Absolute Auto 1.1 K/mm3 (0.1-0.6); Monocytes Percent Auto 13.8 % (2.6-8.5); Neutrophils Absolute Auto 4.5 K/mm3 (1.3-6.7); Neutrophils Percent Auto 57.8 % (45.5-73.1); Platelet Count Result 239 k/mm3 (150-375); Red Blood Count 3.91 M/mm3 (4.2-5.4); Red Cell Distribution Width 13.3 % (11.5-14.5); White Blood Count 7.8 K/mm3 (4.5-10.0)
[2021-12-18 23:18] LABS: Add Urine Microscopic? YES; Appearance Urine Clear (Clear); Bacteria Urine Trace /hpf; Bilirubin Urine Negative (Negative); Blood Urine Negative (Negative); Color Urine Yellow (Yellow); Glucose Urine UA Negative (Negative); Ketones Urine Negative (Negative); Leukocyte Esterase Ur 1+ LEU/UL (Negative); Mucus Urine Rare /lpf; Nitrate Urine Negative (Negative); Protein Urine Negative (Negative); RBC Urine 0-2 /hpf (0-2); Specific Grav Ur 1.015 (1.001-1.035); Squamous Epithelial Cell Urine Many /hpf (Few); Urobilinogen Urine Negative mg/dL (<2.0); WBC Urine 31-50 /hpf
--- NOTE | 2021-12-19 01:50 | ECG_ITS ---
Measurements Intervals [place] Rate: 78 P: 76 UT: 143 QRS: 50 QRSD: 95 T: 46 QT: 402 QTc: 460 Interpretive Statements SINUS RHYTHM POSSIBLE LEFT ATRIAL ENLARGEMENT BORDERLINE ECG Electronically Signed On 12-20-2021 12:20:27 EXTRUSION LINE OPERATOR by Raleigh Basilio D.O.
[2021-12-19] MEDS: ONDANSETRON INJ 4 MG/2 ML VIAL IV PUSH ×2 (01:53→12:39)
[2021-12-19] MEDS: ACETAMINOPHEN 500 MG TABLET 1000 MG PO (01:57)
[2021-12-19 02:28] VITALS: BP 98/55; PULSE 82; RESP 16; TEMP 36.9; O2SAT 99
[2021-12-19 02:34] LABS: SARS-CoV-2 RNA PCR Negative
[2021-12-19] MEDS: SODIUM CHLORIDE 0.9% IV 1,000 ML 125 ML IV CONT (02:49)
--- NOTE | 2021-12-19 02:54 | ADMGEN ---
This patient, Nataliia Mckeon, was admitted to Medical Room 258-01. Patient/family oriented to hospital policies and general routines including ID bracelet, bed and alarms, visiting hours, pain management, procedures, bathroom and other care routines, personal items, smoking policy, room service/diet, and visiting hours. Information on how to activate the Rapid Response Team has been discussed. Patient/Family are encouraged to report perceived risks to care and to ask questions if they do not understand what they are told or what they should do.
[2021-12-19] MEDS: MORPHINE SULFATE (*CRX) 4 MG/ML INJ IV PUSH (03:35)
[2021-12-19 06:00] VITALS: BP 108/66; PULSE 80; RESP 20; TEMP 36.5; O2SAT 99; BMI 22.8
--- NOTE | 2021-12-19 08:26 | PM.IMHP ---
H&P: HPI History of Present Illness Date/Time: 12/19/21 08:26 Chief Complaint: Abdominal pain, constipation Narrative: patient is a 41-year-old woman who came to the emergency room yesterday evening with suprapubic abdominal pain and constipation with no bowel movement for the last 7 days. Her white count was normal and her abdominal exam was only mildly abnormal with some periumbilical and suprapubic tenderness but no peritoneal signs. She had a CT scan of the abdomen and pelvis which showed upper abdominal free air. I reviewed this CT scan independently and there is some all pockets of trapped free air between the liver and the diaphragm and also between the right lobe of the liver and the abdominal sidewall. There was also some in the left upper quadrant. Also on the CT scan is noted that she has severe constipation with a large amount of stool throughout the colon. Patient does normally have bowel movements daily but is prone to intermittent bouts of constipation. When she has constipation, she takes a litany of [id number] products to try to relieve it. Also noteworthy is that she had a totally laparoscopic TAHBSO by Dr. De Anda on October 16, 2021. Well it has been a long time since that surgery and generally free air is gone at this point, that is an operation known to have a large amount of insufflated CO2 gas and certainly could be the source of the free air noted on CT scan. This morning the patient does not feel good. She has a headache and has not eaten all night. She has suprapubic abdominal pain that has been persistent. She has not slept at all tonight. She has not gotten any of her medications as she was NPO for the free air. She has been on Zosyn antibiotics. She has not had any vomiting although has had some mild nausea. She is admitted now for for obstipation of 1 week as well as the abnormal CT scan with evidence of free intraperitoneal air. Review of Systems Review of Systems: All systems reviewed & are unremarkable except as noted in HPI and below Constitutional: Constitutional: Denies chills and Denies fever(s) Cardiovascular: Cardiovascular: Denies chest pain, Denies diaphoresis, Denies dyspnea and Denies paroxysmal nocturnal dyspnea Respiratory: Respiratory: Denies chest congestion, Denies cough and Denies dyspnea Gastrointestinal: Gastrointestinal: Reports as per HPI, Reports abdominal pain, Reports change in stool character, Reports constipation and Reports nausea Integumentary/Breasts: Skin/Breast: Denies lesions and Denies rash Neurologic: Reports as per HPI and Reports headache(s) [facility] Past Medical History Medical History Anxiety Depression GERD (gastroesophageal reflux disease) Family History Family History Grandparent Family history of malignant neoplasm Mother Hypertension Other Family history of arthritis Family history of neuropathy Social History Social History Smoking packs per day: 1 Smoking cigarettes per day: 20.0 Years smoked: 17 Smoking pack-years: 17.00 Smoking status: Former smoker Tobacco type: cigarettes Smoking end date: 11/09/10 Additional smoking assessment comments: 1 ppd x 15 years cigarettes Alcohol intake: never Substance use: current Substance use type: marijuana Other substance usage details: eatable or topical Last use: 06/09/2021 Gender identity (if verbalized by the patient): Female Spiritual care concerns: No Meds Home Medications and Allergies Home Medications Medication Instructions Recorded Confirmed Type bupropion HCl 150 mg PO BID 01/11/20 12/19/21 History buspirone 10 mg PO BID 01/11/20 12/19/21 History gabapentin 800 mg PO HS 01/11/20 12/19/21 History pantoprazole [Protonix] 40 mg PO DAILY 01/11/20 12/19/21 History tramadol 50 mg PO PRN 01/11/20
[2021-12-19 08:58] LABS: Hematocrit 35.7 % (37.0-47.0); Hemoglobin 11.6 g/dL (12.0-15.0); Mean Corpuscular HGB Conc 32.5 g/dl (32-36); Mean Corpuscular Hemoglobin 30.8 pg (26-34); Mean Corpuscular Volume 94.7 fl (80-100); Platelet Count Result 224 k/mm3 (150-375); Red Blood Count 3.77 M/mm3 (4.2-5.4); Red Cell Distribution Width 13.4 % (11.5-14.5); White Blood Count 6.6 K/mm3 (4.5-10.0)
[2021-12-19] MEDS: KETOROLAC 30 MG/ML VIAL (*BKC) IV PUSH (10:37)
[2021-12-19] MEDS: buPROPion HCL SR (12 HR) 150 MG TAB PO ×2 (10:43→20:13)
[2021-12-19] MEDS: busPIRone HCL 10 MG TABLET PO ×2 (10:43→16:46)
[2021-12-19] MEDS: PANTOPRAZOLE 40 MG TABLET PO ×2 (10:44→20:12)
[2021-12-19] MEDS: PSYLLIUM POWDER PACKET 1 PACKET PO ×2 (10:44→20:13)
[2021-12-19] MEDS: MINERAL OIL 30 ML UDC 15 ML PO ×2 (10:44→20:13)
[2021-12-19] MEDS: ESCITALOPRAM OXALATE 10 MG TABLET 20 MG PO (10:44)
[2021-12-19] MEDS: MAGNESIUM CITRATE 300 ML BTL PO (12:11)
[2021-12-19 14:00] VITALS: BP 94/52; PULSE 91; RESP 15; TEMP 36.6; O2SAT 100
[2021-12-19 20:01] VITALS: BP 113/59; PULSE 85; RESP 18; TEMP 36; O2SAT 100
[2021-12-19] MEDS: GABAPENTIN 400 MG CAPSULE 800 MG PO (20:12)
[2021-12-19] MEDS: traZODone HCL 50 MG TABLET 100 MG PO (20:13)
[2021-12-19] MEDS: MELATONIN 5 MG TABLET PO (20:37)
[2021-12-20] MEDS: traMADol HCL (*CRX) 50 MG TABLET PO (03:48)
[2021-12-20 04:59] VITALS: BP 96/53; PULSE 76; RESP 18; TEMP 36.4; O2SAT 99
[2021-12-20 06:00] LABS: Hemoglobin 11.7 g/dL (12.0-15.0); Mean Corpuscular HGB Conc 32.5 g/dl (32-36); Mean Corpuscular Hemoglobin 30.5 pg (26-34); Mean Corpuscular Volume 93.8 fl (80-100); Mean Platelet Volume 10.3 fl (7.4-10.4); Platelet Count Result 265 k/mm3 (150-375); Red Blood Count 3.84 M/mm3 (4.2-5.4); Red Cell Distribution Width 13.4 % (11.5-14.5); White Blood Count 6.3 K/mm3 (4.5-10.0)
[2021-12-20 06:17] LABS: Anion Gap 2 mmol/L (8-16); Blood Urea Nitrogen 2 mg/dL (7-17); Calcium 8.5 mg/dL (8.4-10.2); Carbon Dioxide 27 mmol/L (22-30); Chloride 108 mmol/L (98-107); Estimated CRCL calculation 106 ml/min; Estimated Glomerular Filt Rate > 60; Glucose 85 mg/dL (65-110); Potassium 3.7 mmol/L (3.4-5.0); Sodium 137 mmol/L (137-145)
[2021-12-20] MEDS: PSYLLIUM POWDER PACKET 1 PACKET PO (08:38)
[2021-12-20] MEDS: ESCITALOPRAM OXALATE 10 MG TABLET 20 MG PO (08:38)
[2021-12-20] MEDS: MINERAL OIL 30 ML UDC 15 ML PO (08:38)
[2021-12-20] MEDS: buPROPion HCL SR (12 HR) 150 MG TAB PO (08:39)
[2021-12-20] MEDS: PANTOPRAZOLE 40 MG TABLET PO (08:39)
[2021-12-20] MEDS: busPIRone HCL 10 MG TABLET PO (08:39)
--- NOTE | 2021-12-20 08:44 | PM.DS ---
DS: Admitting Diagnosis Discharge Date 12/20/2021 Admitting Diagnosis obstipation x7 days chronic constipation free intraperitoneal air on CT scan DS: Discharge Diagnosis Discharge Diagnosis (1) Constipation: Qualifiers: Constipation type: unspecified constipation type Qualified Code(s): K59.00 - Constipation, unspecified Code(s): K59.00 - Constipation, unspecified Status: Chronic Assessment and Plan: patient had multiple bowel movements after water-soluble contrast enema as well as Mag citrate. Feels much better. (2) Free intraperitoneal air: Code(s): K66.8 - Other specified disorders of peritoneum Status: Chronic Assessment and Plan: No evidence of acute bowel perforation as source. Most likely residual CO2 from laparoscopic hysterectomy done in early October. DS: Summary Hospital Course Hospital Course: Patient is a 41-year-old woman who came to the emergency room with a 7 day history of obstipation and lower abdominal pain. She had a normal white count but some lower abdominal tenderness. CT scan was done and showed free intraperitoneal air mostly up around the liver and in the left upper quadrant. This was not a large amount. Patient did not have clinical signs of bowel perforation. She did have a history of laparoscopic total abdominal hysterectomy on October 16. She was admitted and started on IV Zosyn. Her clinical picture and repeat CBC did not show any signs of recent bowel perforation or peritonitis. She did however have evidence of severe constipation with the entire colon full of fecal material. She had a water-soluble contrast enema on 12/19/2021. This showed no evidence of distal stricture or obstruction. She was started on Metamucil and mineral oil both twice a day. She was given a full bottle of magnesium citrate. She had several bowel movements yesterday. Her abdominal pain is essentially gone this morning. Her exam shows no residual abdominal tenderness. She is discharged at this time in good condition. She is advised to continue on Metamucil and mineral oil 1 tbsp of each b.i.d. for at least the next 2 weeks and then continue Metamucil 1 tbsp indefinitely for chronic constipation. Status at Discharge Functional status at discharge: independent ambulation Overall status at discharge: patient is back to baseline Time Spent with Patient Time attestation: Total time spent providing and/or coordinating discharge services: Exam Const: General: comfortable and no acute distress; No confusion Orientation/consciousness: patient oriented x3 and No confusion GI: GI Palp: Yes Soft to palpation, Yes Tenderness to palpation present (GI), No Guarding due to palpation present (GI) and No Rebound tenderness present Auscultation: normal bowel sounds Neuro: General: patient oriented x3, no focal motor deficits and No confusion Extrem: General: no calf tenderness and no edema Psych: Affect: normal affect Insight: Good insight present (Psych) Judgement: Good judgement present (Psych) DS: Data Data Completed and Pending Labs on day of discharge: Labs from last 24 hours 12/20/21 12/20/21 12/19/21 05:38 05:38 08:38 WBC 6.3 6.6 RBC 3.84 L 3.77 L Hgb 11.7 L 11.6 L Hct 36.0 L 35.7 L MCV 93.8 94.7 MCH 30.5 30.8 MCHC 32.5 32.5 RDW 13.4 13.4 Plt Count 265 224 MPV 10.3 10.0 Sodium 137 Potassium 3.7 Chloride 108 H Carbon Dioxide 27 Anion Gap 2 L BUN 2 L Creatinine 0.50 L Estim Creat Clear Calc 106 Estimated GFR > 60 Glucose 85 Calcium 8.5 Discharge Plan Discharge Attending physician on discharge: Nick Atkins Discharging Clinician: Nick Atkins Anticipated Discharge Date/Time: 12/20/21 08:50 Patient Disposition: Home, Self-Care Activity: may shower and as tolerated Diet: regular Discharge Instructions: Take Metamucil 1 tbsp and mineral oil
== END 2021-12-20 10:43 | disposition home or self-care (01) ==
LOC: ANHED 12-19 01:42 → ANH2MED 12-19 02:23
PROVIDERS: Admitting Provider Surgery; Emergency Provider Emergency Medicine; PCP Emergency Medicine; Visit Provider Surgery
DX: K59.00 Constipation, unspecified (principal); K66.8 Other specified disorders of peritoneum; K21.9 Gastro-esophageal reflux disease without esophagitis; F41.8 Other specified anxiety disorders; Z87.891 Personal history of nicotine dependence; F12.90 Cannabis use, unspecified, uncomplicated; Z20.822 Contact with and (suspected) exposure to COVID-19
CPT/HCPCS: 36415; 74177; 74270; 80048; 80053; 81001; 83690; 85025; 85027; 87086; 87088; 93005; 96361; 96365; 96366; 96375; 96376; 99285; A9270; C9803; G0378; J0131; J1885; J2270; J2405; J2543; J7030; Q9967; U0003; U0005

== ENCOUNTER 2023-01-14 09:54 | Outpatient (CLI) | payer MEDICARE, MEDICAID, SELFPAY ==
--- NOTE | ~2023-01-14 | MM_ITS ---
EXAMINATION: MM screening shad BI w hung HISTORY: Screening mammogram TECHNIQUE: Craniocaudal and mediolateral oblique 3-D tomosynthesis images were obtained and synthetic 2-D images were generated. CAD analysis was submitted and interpreted. COMPARISON: None, baseline BREAST PARENCHYMAL COMPOSITION: There are scattered areas of fibroglandular density. FINDINGS: RIGHT BREAST: No suspicious mass, calcification, or architectural distortion are identified to sugges t malignancy. LEFT BREAST: There is a possible obscured mass in the anterior third of the lower inner breast. IMPRESSION: 1. Possible left breast mass. 2. Additional mammographic views and possible breast ultrasound are recommended. BI-RADS Category 0: Incomplete: Needs additional imaging evaluation. Reviewed, dictated and finalized at location A. [employer] IMPRESSION: 1. Possible left breast mass. 2. Additional mammographic views and possible breast ultrasound are recommended . BI-RADS Category 0: Incomplete: Needs additional imaging evaluation.
== END 2023-01-14 09:55 | disposition home or self-care (01) ==
LOC: ANHIMG 09:56
PROVIDERS: PCP Emergency Medicine; Visit Provider Nurse Practitioner Obstetrics & Gynecology
DX: Z12.31 Encounter for screening mammogram for malignant neoplasm of breast (principal); R92.8 Other abnormal and inconclusive findings on diagnostic imaging of breast
CPT/HCPCS: 77063; 77067

== ENCOUNTER 2025-04-21 11:29 | Emergency (ER) | payer MEDICARE, MEDICAID, SELFPAY ==
--- NOTE | 2025-04-21 11:30 | ED.SKABFB ---
HPI - Skin/Abscess/Foreign Bdy General Chief complaint: Skin/Abscess/Foreign Body Stated complaint: rash Source: patient, RN notes reviewed and old records reviewed Mode of arrival: ambulatory Limitations: no limitations History of Present Illness HPI narrative: 44-year-old female presents to the [facility] with a rash to the left lower abdomen. Has 5 area is mild redness, not raise. Patient reports they were blisters. Started last night. Onset (ago): day(s) (1) Treatments prior to arrival: none Related Data Home Medications ?Medication ?Instructions ?Recorded ?Confirmed ?Last Taken ?Type bupropion HCl 150 mg 24 hr tablet, 150 mg PO BID 01/11/20 12/19/21 10/15/21 06:00 History extended release buspirone 10 mg tablet 10 mg PO BID 01/11/20 12/19/21 10/15/21 06:00 History gabapentin 800 mg PO HS 01/11/20 12/19/21 10/14/21 21:00 History pantoprazole 40 mg tablet,delayed 40 mg PO DAILY 01/11/20 12/19/21 Unknown History release (Protonix) tramadol 50 mg tablet 50 mg PO PRN 01/11/20 12/19/21 10/13/21 History trazodone 100 mg tablet 100 mg PO HS 01/11/20 12/19/21 10/14/21 21:00 History escitalopram oxalate 10 mg tablet 20 mg PO DAILY 10/02/21 12/19/21 10/15/21 06:00 History fluticasone propionate 50 1 spray intranasal PRN 10/02/21 12/19/21 10/10/21 History mcg/actuation nasal spray,suspension (Flonase Allergy Relief) loratadine 10 mg tablet (Claritin) 10 mg PO PRN 10/02/21 12/19/21 10/15/21 06:00 History atomoxetine 18 mg capsule 18 mg PO BID 12/19/21 12/19/21 Unknown History melatonin 5 mg tablet 5 mg PO PRN PRN Insomnia 12/19/21 12/19/21 Unknown History Allergies Allergy/AdvReac Type Severity Reaction Status Date / Time SEASONAL ALLERGENS AdvReac Mild RUNNY NOSE Uncoded 04/21/25 11:31 Review of Systems Review of Systems: All systems reviewed & are unremarkable except as noted in HPI and below Constitutional: Constitutional: Reports no additional constitutional complaints ENT: Reports system reviewed and no additional complaints, except as documented Cardiovascular: Cardiovascular: Reports no additional cardiovascular complaints, Denies chest pain and Denies dyspnea Respiratory: Respiratory: Reports no additional respiratory complaints, Denies chest congestion, Denies cough and Denies dyspnea Musculoskeletal: Musculoskeletal: Reports no additional musculoskeletal complaints Integumentary/Breasts: Skin/Breast: Reports as per HPI [facility] Past Medical History Medical History GERD (gastroesophageal reflux disease) Anxiety Depression Family History Family History Grandparent Family history of malignant neoplasm Mother Hypertension Other Family history of arthritis Family history of neuropathy Social History Social History Smoking packs per day: 1 Smoking cigarettes per day: 20.0 Years smoked: 17 Smoking pack-years: 17.00 Smoking status: Former smoker Tobacco type: cigarettes Smoking end date: 11/09/10 Additional smoking assessment comments: 1 ppd x 15 years cigarettes Alcohol intake: never Substance use: current Substance use type: marijuana Other substance usage details: eatable or topical Last use: 06/09/2021 Living arrangements: alone Gender identity (if verbalized by the patient): Female Spiritual care concerns: No Comments At the time of my signature, I reviewed and agree with the nursing past medical, surgical, social, and family history. There is no relevant family history pertinent to the patient complaint. Exam Const: General: cooperative, healthy appearing, comfortable, no acute distress, well developed, alert and well nourished Nutritional Appearance: well nourished Orientation/consciousness: patient oriented x3 Limitations: no limitations HENMT: Head: normal to inspection Eyes: General: appearance normal, both eyes and all related structures Alignment and Position: alignment normal Neck: Neck: normal visual inspection, full ROM, no lymphadenopathy and no meningeal signs Chest: Chest palpation & inspection: normal inspection of the chest Resp: Effort & Inspection: normal respiratory effort and able to speak in complete sentences Auscultation: clear to auscultation bilaterally, no crackles, no rales, no rhonchi and no wheezes Cardio: Rate: regular rate Skin: General skin exam: normal color and no rashes or lesions noted Rashes: other (Left lower abdomen, red, not raised. ) Neuro: General: patient oriented x3, gait normal, moves all extremities and no meningeal signs Cognition (Neuro): normal cognition Speech: normal speech Gait exam (Neuro): Normal gait present Extrem: General: normal to inspection, full ROM, capillary refill normal and normal gait Psych: Appearance: grossly normal and well kempt Mental Status: mental status grossly normal Speech and movement: Normal speech and movement present and Clear speech present Affect: normal affect Attitude: cooperative Course Course Level of Care: Express Care Visit Vital Signs Vital signs: Vital Signs Temperature 96.1 F L 04/21/25 11:37 Pulse Rate 79 04/21/25 11:37 Respiratory Rate 16 04/21/25 11:37 Blood Pressure 116/57 L 04/21/25 11:37 Pulse Oximetry 99 04/21/25 11:37 Oxygen Delivery Room Air 04/21/25 11:37 Temperature 96.1 F L 04/21/25 11:37 Pulse Rate 79 04/21/25 11:37 Respiratory Rate 16 04/21/25 11:37 Blood Pressure 116/57 L 04/21/25 11:37 Pulse Oximetry 99 04/21/25 11:37 Oxygen Delivery Room Air 04/21/25 11:37 Reviewed MDM - Skin/Abscess/Foreign Bdy MDM Narrative Medical decision making narrative: Patient sitting exam patient is is stable. Patient presents with a rash to the left lower abdomen. Concern for insect bites versus shingles, will cover for shingles, discussed [id number] treatments. Patient appropriate for outpatient treatment with close follow-up Discharge instructions reviewed with patient, as well as provided in writing per nursing staff. The instructions also include specific and strict return/GO TO THE ER as well as f/u information. All questions have been answered, and the patient deny any further questions with discharge and discharge plan. Some parts of this dictation were generated by voice recognition software and may contain typographical and/or grammatical inaccuracies. Differential Diagnosis Differential diagnosis: Likely abscess of skin or subcutaneous tissue, viral exanthem, urticaria, herpes zoster, cellulitis, insect bites, impetigo and contact dermatitis Critical Care Time Critical Care Time Critical Care Time: No Discharge Plan Discharge Clinical Impression: Rash Patient Disposition: Home Condition: Stable Instructions: Shingles (ED) Additional Instructions: Keep area clean and dry. Wash with warm soapy water twice daily. Pat dry. If itchy apply hydrocortisone cream. Follow-up with primary care provider For worsening symptoms go directly to the emergency room Patient Language: Vietnamese Prescriptions: New valacyclovir 1 gram tablet 1,000 mg PO TID 7 Days Qty: 21 0RF No Action tramadol 50 mg Tablet 50 mg PO PRN trazodone 100 mg Tablet 100 mg PO HS pantoprazole [Protonix] 40 mg Tablet,Delayed Release (Dr/Ec) 40 mg PO DAILY buspirone 10 mg Tablet 10 mg PO BID bupropion HCl 150 mg Tablet Extended Release 24 Hr 150 mg PO BID gabapentin 800 mg PO HS fluticasone propionate [Flonase Allergy Relief] 50 mcg/actuation spray,suspension 1 spray NASAL PRN Rx Instructions: administer into each nostril loratadine [Claritin] 10 mg tablet 10 mg PO PRN escitalopram oxalate 10 mg tablet 20 mg PO DAILY atomoxetine 18 mg capsule 18 mg PO BID melatonin 5 mg Tablet 5 mg PO PRN PRN (Reason: Insomnia) mineral oil [Mineral Oil Light] Oil 15 ml PO Q12H 14 Days Qty: 500 0RF Metamucil (with sugar) 3.4 gram Powder In Packet 1 packet PO Q12HR 14 Days Qty: 30 0RF Follow-up/Referrals: Ranjan Graham MD [Primary Care Provider] - 2 Weeks Time of Disposition: 11:47
[2025-04-21 11:37] VITALS: BP 116/57; PULSE 79; RESP 16; TEMP 35.6; O2SAT 99
== END 2025-04-21 11:55 | disposition home or self-care (01) ==
PROVIDERS: Emergency Provider Nurse Practitioner; PCP Emergency Medicine
DX: R21 Rash and other nonspecific skin eruption (principal); Z87.891 Personal history of nicotine dependence; K21.9 Gastro-esophageal reflux disease without esophagitis; F41.9 Anxiety disorder, unspecified; F32.A Depression, unspecified
CPT/HCPCS: 99213; G0463